=== PATIENT | female | born 1930 | race Two or more races ===

== ENCOUNTER 2016-10-19 14:07 | Emergency (ER) ==
[2016-10-19 14:14] VITALS: BP 197/86; TEMP 98.1; BMI 23.8
[2016-10-19 14:29] LABS: BASOPHILS % (AUTO) 0.4 % (0.0-3.0); EOSINOPHILS # (AUTO) 0.1 K/ul (0.0-0.7); EOSINOPHILS % (AUTO) 1.2 % (0.0-7.0); HEMATOCRIT 35.1 % (37.0-47.0); HEMOGLOBIN 11.2 g/dl (12.0-16.0); IMMATURE GRANULOCYTE % (AUTO) 0.4 % (0.0-5.0); LYMPHOCYTES # (AUTO) 2.2 K/uL (0.60-3.4); LYMPHOCYTES % (AUTO) 26.7 (10.0-50.0); MEAN CORPUSCULAR HEMOGLOBIN 28.1 pg (27.0-31.0); MEAN CORPUSCULAR HGB CONC 31.9 (31.8-35.4); MEAN CORPUSCULAR VOLUME 88.2 fl (81.0-99.0); MONOCYTES # (AUTO) 0.9 K/uL (0.4-2.0); MONOCYTES % (AUTO) 11.2 (0-10); NEUTROPHILS % (AUTO) 60.1; PLATELET COUNT 256 10^3/uL (140-440); RED BLOOD COUNT 3.98 10^6/ul (4.20-5.40); WHITE BLOOD COUNT 8.25 K/ul (4.6-10.2)
[2016-10-19 14:57] LABS: ALBUMIN 3.3 g/dL (3.4-5.0); ALBUMIN/GLOBULIN RATIO 0.92; ANION GAP 13.9; BILIRUBIN,TOTAL 0.4 mg/dL (0.00-1.20); BUN/CREATININE RATIO 26.66; CALCIUM 9.3 mg/dL (8.2-10.2); CREATININE 0.75 mg/dL (0.60-1.30); POTASSIUM 3.9 mmol/L (3.5-5.10); TOTAL PROTEIN 6.9 g/dL (5.8-8.1)
[2016-10-19 15:04] LABS: PARTIAL THROMBOPLASTIN TIME 22.8 SEC (23.9-40.0); PROTHROMBIN TIME 10.4 SEC (9.3-11.0)
--- NOTE | 2016-10-19 16:11 | DI ---
EXAM: Two views of the right humerus HISTORY: Fall COMPARISON: None available FINDINGS: No fracture or dislocation is identified. There are degenerative changes of the acromioclavicular j oint. IMPRESSION: No acute osseous abnormality.
--- NOTE | 2016-10-19 16:11 | DI ---
EXAM: Three views of the right shoulder HISTORY: Fall COMPARISON: None available FINDINGS: No fracture or dislocation is identified. There is mild narrowing of the acromioclavicular joint wi th a degenerative ossicle at the superior margin. IMPRESSION: No acute osseous abnormality. Mild degenerative changes of the acromioclavicular joint.
--- NOTE | 2016-10-19 16:13 | DI ---
EXAM: Three views of the right elbow HISTORY: Fall with pain. COMPARISON: Right humerus x-rays same day FINDINGS: There is no cortical irregularity or displaced fracture of the right elbow. There are no displaced fat pads. There is no lytic or blastic lesion. Soft tissues are unremarkable. Radial he ad articulates normally with the capitellum. IMPRESSION: No acute abnormality or displaced fracture of the right elbow.
--- NOTE | 2016-10-19 16:14 | DI ---
EXAM: Three views of the right ankle HISTORY: Pain, fall COMPARISON: None available FINDINGS: No fracture or dislocation is identified. There is no widening of the ankle mortise. The talar dome contour is normal. Small plantar calcaneal and distal Achilles insertion heal spurs are seen. IMPRESSION: No acute osseous abnormality.
--- NOTE | 2016-10-19 16:15 | DI ---
EXAM: Three views of the right foot HISTORY: Fall COMPARISON: None available FINDINGS: No fracture or dislocation is identified. There is mild narrowing of the interphalangeal joints. S mall distal Achilles insertion and plantar calcaneal heal spurs are present. There is mild narrowing of the talonavicular joint. Os naviculare are seen. IMPRESSION: No acute osseous abnormality.
--- NOTE | 2016-10-19 16:15 | DI ---
EXAM: Left lower leg. Two-view HISTORY: Pain COMPARISON: None FINDINGS: No fracture or dislocation. Small plantar calcaneal spur. Alignment is normal. Subcutane ous edema suggested. IMPERSSION: 1. No fracture or dislocation. 2. Small plantar calcaneal spur. 3. Subcutaneous edema suggested.
--- NOTE | 2016-10-19 16:26 | CT ---
EXAM: CT chest without contrast HISTORY: Fall, pain COMPARISON: None TECHNIQUE: CT chest performed without intravenous contrast. Coronal and sagittal reformatted image s obtained. FINDINGS: Nonspecific prominent caliber left internal jugular vein. Heart normal in size. No peric ardial effusion. Aorta normal in caliber. Atherosclerosis. Descending aorta tortuous. Evaluation for lymphadenopathy limited without contrast. No lymphadenopathy identified. Calcified mediastina l and hilar lymph nodes, consistent with old granulomatous disease. Moderate hiatal hernia. The ce ntral airway patent. Granulomatous calcification left lung. No airspace consolidation. No pleural effusion. No pneumothorax. Mild bibasilar subsegmental atelectasis and/or scarring. Please refer to separate report CT abdomen pelvis regarding findings in the upper abdomen. IMPRESSION: 1. No acute traumatic injury identified in the chest. 2. Nonspecific prominent caliber left internal jugular vein. 3. Moderate hiatal hernia
--- NOTE | 2016-10-19 16:28 | CT ---
EXAM: CT of the abdomen and pelvis with IV contrast. HISTORY: Pain, flank bruising after fall COMPARISON: 06/30/2013 TECHNIQUE: CT of the abdomen and pelvis with IV contrast. FINDINGS: The gallbladder has been removed. Dilation of the common bile duct to 2.2 cm is again seen. Intrah epatic biliary ductal dilation is also unchanged. No discrete obstructing stone or mass is visualiz ed. The liver otherwise enhances normally. Splenic calcified granulomas are seen. The adrenals en danis normally. There is mild anterior inferior right renal cortical thinning. A few tiny bilatera l renal hypodensities seen which are too small to characterize. The pancreas is atrophic. There is a moderate hiatal hernia. No abnormal small bowel dilation is seen. Diverticulosis seen w ithout evidence of diverticulitis. There is wall thickening of the distal colon, likely secondary t o underdistension. No adjacent inflammatory changes are seen. The appendix is not identified and no pericecal inflammatory changes are seen. There is calcified atherosclerotic plaque of the aorta and iliac arteries no free air or free fluid is seen. There is fracture of the left tenth and eleventh lateral ribs. A left acetabular probable bone islan d is again seen. There is multilevel degenerative disc disease, up to severe at L1-L2 and L2-L3. Th ere is severe multilevel facet arthropathy. There is 7 mm of anterolisthesis at L5-S1 and 3 mm of an terior listhesis at L4-5. 2 mm of posterior listhesis is seen at L1-2 and L2-3. Prominent lumbar de xtroscoliosis is seen. IMPRESSION: No traumatic intra-abdominal findings. Mildly displaced fracture of the left tenth and eleventh lateral ribs. Similar extrahepatic and intrapelvic biliary dilation. Diverticulosis. Distal colonic wall thickening, likely secondary to the underdistension. No adjacent inflammatory c hanges identified to suggest colitis. Moderate hiatal hernia. Scoliosis and multilevel degenerative disc disease and facet arthropathy. Multilevel grade 1 listhes is, up to 7 mm at L5-S1.
--- NOTE | 2016-10-19 16:31 | CT ---
EXAM: CT lumbar spine without contrast. HISTORY: Fall with pain COMPARISON: CT abdomen pelvis same day TECHNIQUE: Serial axial images of the spine were obtained from the lower thoracic spine through the pelvis without contrast. These were viewed in multiple planes. FINDINGS: Vertebral bodies demonstrate normal vertebral body height. There is anterolisthesis of L 5 on S1 by approximately 0.6 cm. There is trace anterior listhesis of L4 on L5 of approximately 0.2 cm. There is narrowing at L1-L2 and L2-L3 with osteophyte formation. There is moderate amount of facet arthropathy. There is rightward scoliosis of the lumbar spine. There is no lytic or blastic lesion. L1-L2: The osteophyte formation and facet arthropathy contribute to mild bilateral neural foraminal narrowing. L2-L3: There is narrowing and osteophyte formation with facet arthropathy with bilateral mild to mod erate neural foraminal narrowing. L3-L4: Broad-based disc bulge and facet arthropathy contribute to mild to moderate left neural vasiliy inal narrowing. L4-L5: Broad-based disc bulge with facet arthropathy and osteophyte formation with bilateral mild ne ural foraminal narrowing and mild to moderate central narrowing most pronounced on axial image 60. L5-S1: Degenerative disease and facet arthropathy contribute to bilateral moderate neural foraminal narrowing. Limited views of the soft tissues demonstrate diverticulosis without diverticulitis. The soft tissu es are otherwise unremarkable with moderate hiatal hernia. IMPRESSION: 1. Multilevel degenerative disease and scattered anterolisthesis of L4 on L5 and L5 on S1. 2. There is no acute compression fracture with rightward scoliosis. 3. Multilevel degenerative disease with neural foraminal and central narrowing as above. This is m ost pronounced centrally at L4-L5. 4. Diverticulosis without diverticulitis.
--- NOTE | 2016-10-19 16:33 | CT ---
EXAM: CT thoracic spine without contrast HISTORY: Pain, fall COMPARISON: None TECHNIQUE: CT thoracic spine performed without intravenous contrast. Coronal and sagittal reformat aly images obtained. FINDINGS: Please refer to separate report CT chest and CT abdomen pelvis regarding findings externa l to the spine. Vertebral bodies normal height. No fracture. No subluxation. Mild to moderate mu ltilevel chronic discogenic degenerative disease with multilevel intervertebral disc space narrowing and marginal osteophyte formation. Multilevel posterior disc osteophyte complexes causing multileve l mild multilevel central canal and mild to mild-moderate neural foraminal narrowing. Mild leftward curvature thoracic spine. Bones appear demineralized. IMPRESSION: 1. No fracture or subluxation. 2. Mild to moderate chronic discogenic degenerative disease. 3. Bones appear demineralized.
--- NOTE | 2016-10-19 16:36 | CT ---
EXAM: Noncontrast CT of the cervical spine HISTORY: Pain COMPARISON: None available TECHNIQUE: Noncontrast CT of the cervical spine FINDINGS: No cervical spine fracture is identified. There is 1.5 mm of anterolisthesis at C2-C3 and C4-5. 2 mm of posterior listhesis is seen at C5-6. There is 2 mm of anterolisthesis at C7-T1. Facet arthro mirian is seen at these levels. There is moderate disc height loss at the C5-6 and C6-7 with anterior osteophyte formation and disc osteophyte complexes. No abnormal prevertebral soft tissue swelling is seen. A calcification is incidentally noted within the region of the left thalamus/cerebral pedun luis angel. Osseous prominence of the posterior inferior aspect the calvarium is incidentally noted. The le ft jugular vein is larger than the right. This is of uncertain significance. IMPRESSION: No cervical spine fracture identified. Multilevel grade 1 listhesis measuring up to 2 mm as described above. Facet arthropathy is seen at these levels. Moderate C5-6 and C6-7 degenerative disc disease.
--- NOTE | 2016-10-19 16:53 | ED.PDOC ---
General ED Provider: Dr. JAIDEN CHERRY Chief Complaint: Fall Stated Complaint: FALL AGAINST TABLE Time Seen by Physician: 14:10 Mode of Arrival: Walk-In Information Source: Patient Exam Limitations: No limitations Primary Care Provider: BARBARA MCKINNEY Nursing and Triage Documentation Reviewed and Agree: Yes Trauma/Injury Complaint Exam - Trauma Complaint/Exam Location of Pain or Injury: Reports: Neck, RUE (SHOULDER, ELBOW), Chest, Abdomen , Back Mechanism of Injury: Reports: Fall Onset/Duration: 1 DAY Symptoms Are: Still present Initial Severity: Mild Current Severity: Mild Character: Reports: Aching Aggravating: Reports: Movement Alleviating: Reports: Rest, Immobilization Associated Signs and Symptoms: Reports: Bruising (FLANK). Denies: LOC, Confusion, Memory loss, Lethargy, Vomiting, Bleeding, Swelling, Extremity disuse , Painful respiration, Hoarseness, Dysphagia, Hemoptysis, Significant blood loss Penetrating Injury Risk Factors: Reports: None Nexus Low Risk Criteria: No evidence of intoxicat., No Altered LOC, No focal neuro deficit, No distracting injuries Glascow Coma Scale (see protocol): 15 Differential Diagnoses: Other (FLANK BRUSING) Review of Systems - Review Of Systems Constitutional: Reports: No symptoms Eyes: Reports: No symptoms Ears, Nose, Mouth, Throat: Reports: No symptoms Respiratory: Reports: No symptoms Cardiac: Reports: Chest pain (AFTER A FALL) GI: Reports: No symptoms : Reports: No symptoms Musculoskeletal: Reports: Back pain, Neck pain Skin: Reports: No symptoms Neurological: Reports: No symptoms Endocrine: Reports: No symptoms Hematologic/Lymphatic: Reports: No symptoms All Other Systems: Reviewed and Negative Past Medical History - Past Medical History Previously Healthy: Yes Endocrine: Reports: None Cardiovascular: Reports: Hypertension Respiratory: Reports: None Hematological: Reports: None Gastrointestinal: Reports: None Genitourinary: Reports: None Neuro/Psych: Reports: None Musculoskeletal: Reports: None Cancer: Reports: None Last Menstrual Period: n/a - Surgical History General Surgical History: Reports: None - Family History Family History: Reports: None - Social History Smoking Status: Never smoker Hx Substance Use: No Alcohol Screening: None Physical Exam - Physical Exam Appearance: Well-appearing, No pain distress, Well-nourished Eyes: AILEEN, EOMI, Conjunctiva clear ENT: Ears normal, Nose normal, Oropharynx normal Respiratory: Airway patent, Breath sounds clear, Breath sounds equal, Respirations nonlabored Cardiovascular: RRR, Pulses normal, No rub, No murmur GI/: Soft, Nontender, No masses, Bowel sounds normal, No Organomegaly Musculoskeletal: Limited ROM (LEFT CHEST WALL PAIN ) Skin: Warm, Dry, Normal color Neurological: Sensation intact, Motor intact, Reflexes intact, Cranial nerves intact, Alert, Oriented Psychiatric: Affect appropriate, Mood appropriate Critical Care Note - Critical Care Note Total Time (mins): 0 Course - Course Hematology/Chemistry: 10/19/16 14:26 10/19/16 14:26 Orders, Labs, Meds: Lab Review 10/19/16 10/19/16 14:26 14:30 WBC 8.25 RBC 3.98 L Hgb 11.2 L Hct 35.1 L MCV 88.2 MCH 28.1 MCHC 31.9 RDW Coeff of Miranda 14.8 Plt Count 256 Immature Gran % (Auto) 0.4 Neut % (Auto) 60.1 Lymph % (Auto) 26.7 [place] % (Auto) 11.2 H Eos % (Auto) 1.2 Baso % (Auto) 0.4 Immature Gran # (Auto) 0.0 Neut # 5.0 Lymph # 2.2 [place] # 0.9 Eos # 0.1 Baso # 0.0 PT 10.4 INR 1.01 APTT 22.8 L Sodium 143 Potassium 3.9 Chloride 106 Carbon Dioxide 27 Anion Gap 13.9 BUN 20 H Creatinine 0.75 Estimated GFR (MDRD) 73.00 BUN/Creatinine Ratio 26.66 Glucose 95 Calcium 9.3 Total Bilirubin 0.40 AST 32 ALT 17 Alkaline Phosphatase 72 Total Protein 6.9 Albumin 3.3 L Globulin 3.6 Albumin/Globulin Ratio 0.92 Orders Category Date Time Status NPO REMINDER: IMAGING ONCE CARE 10/19/16 14:20 Active CBC W/ AUTO DIFF Stat LAB 10/19/16 14:26 Completed COMPREHENSIVE METABOLIC PANEL Stat LAB 10/19/16 14:26 Completed PARTIAL THROMBOPLASTIN TIME Stat LAB 10/19/16 14:30 Completed PT WITH INR Stat LAB 10/19/16 14:30 Completed ANKLE, RIGHT MIN 3 VIEWS Stat RADS 10/19/16 14:[address] ABDOMEN/PELVIS W CONTRAST Stat RADS 10/19/16 14:[address] CERVICAL SPINE W/O CONTRAST Stat RADS 10/19/16 14:[address] CHEST W/O CONTRAST Stat RADS 10/19/16 14:[address] LUMBAR SPINE W/O CONTRAST Stat RADS 10/19/16 14:[address] THORACIC SPINE W/O CONTRAST Stat RADS 10/19/16 14:18 Completed ELBOW, RIGHT MIN 3 VIEWS Stat RADS 10/19/16 14:34 Completed FOOT, RIGHT 3 VIEWS Stat RADS 10/19/16 14:20 Completed HUMERUS, RIGHT 2 VIEWS Stat RADS 10/19/16 14:35 Completed SHOULDER, RIGHT MIN 2V Stat RADS 10/19/16 14:35 Completed TIBIA/FIBULA, LEFT 2 VIEWS Stat RADS 10/19/16 14:20 Completed Vital Signs: Temp Pulse Resp BP Pulse Ox 10/19/16 14:07 98.1 F 65 18 197/86 H 96 Departure - Departure Time of Disposition: 16:55 Disposition: HOME SELF-CARE Discharge Problem: Fracture, rib Qualifiers: Encounter type: initial encounter Fracture type: closed Instructions: Rib Fracture (ED) Condition: Good Pt referred to PMD for follow-up: No Additional Instructions: Please call your Family Physician as soon as possible to schedule a follow-up appointment. Allergies/Adverse Reactions: Allergies Barbiturates Adverse Reaction (Verified 10/19/16 14:27) Penicillins Adverse Reaction (Verified 10/19/16 14:27) complications with anesthesia Adverse Reaction (Uncoded 10/19/16 14:27) Home Medications: Ambulatory Orders Alendronate Sodium 25 mg PO WEEKLY 10/19/16 Aspirin [Aspirin Chewable] 81 mg PO DAILYWM 10/19/16 Calcium Carbonate/Vitamin D3 [Calcium 600 + Vit D Tablet] 1 each PO BID Clonazepam 0.5 mg PO BID 10/19/16 Furosemide 20 mg PO DAILY PRN 10/19/16 Gabapentin 300 mg PO TID 10/19/16 Multivitamin 1 cap PO DAILY 10/19/16 Oxycodone HCl 10 mg PO TID 10/19/16 Potassium Chloride 10 meq PO DAILY 10/19/16 Propylene Glycol/Peg 400 [Systane Liquid Gel Eye Drops] 1 drop OP PRN PRN Sennosides [Natural Vegetable Laxative] 8.6 mg PO PRN PRN 10/19/16 Triamterene/Hydrochlorothiazid [Maxzide 37.5 mg-25 mg Tablet] 1 each PO DAILY Valsartan [Diovan] 80 mg PO DAILY 10/19/16 Disposition Discussed With: Patient
== END 2016-10-19 17:26 | disposition home or self-care (01) ==
LOC: ED 14:07
DX: S22.42XA Multiple fractures of ribs, left side, initial encounter for closed fracture (principal); M54.2 Cervicalgia; M25.511 Pain in right shoulder; M25.521 Pain in right elbow; R10.9 Unspecified abdominal pain; R07.89 Other chest pain; M54.9 Dorsalgia, unspecified; I10 Essential (primary) hypertension; Z79.899 Other long term (current) drug therapy; W19.XXXA Unspecified fall, initial encounter
CPT/HCPCS: 36415; 80053; 85025; 85610; 85730; 99283